=== PATIENT | female | born 1970 | race Two or more races ===

== ENCOUNTER 2024-10-02 14:40 | Outpatient (CLI) | payer OTHER, SELFPAY | END 2024-10-02 14:41 | disposition home or self-care (01) | PROVIDERS: PCP Family Medicine; Visit Provider Family Medicine | DX: I10 Essential (primary) hypertension (principal); E78.5 Hyperlipidemia, unspecified; I25.10 Atherosclerotic heart disease of native coronary artery without angina pectoris; E55.9 Vitamin D deficiency, unspecified; M54.50 Low back pain, unspecified | CPT/HCPCS: 80053; 80061; 82306; 82607; 82728; 83540; 83550; 84439; 84443; 85025 ==

== ENCOUNTER 2024-11-10 12:51 | Outpatient (RCR) | payer BC, SELFPAY ==
--- NOTE | 2024-11-10 16:20 | PT.OPEX ---
PT [place] Out[facility] Eval PT [facility] Outpatient Eval Start: 11/10/24 13:08 Freq: Status: Active Protocol: Document 11/10/24 13:09 ILSA (Rec: 11/10/24 16:11 ILSA [id number]) E-signed By Sara Ramirez DPT Physical Therapy Outpatient Evaluation Insurance Information Recert Due Date 02/08/25 Insurance Name Medicaid Medical Diagnosis bilateral knee pain LBP Treating Diagnosis bilateral knee pain, quad/VMO weakness with lateral patellar tracking, hypomobile patella bilaterally, LBP, core/hip/ glut weakness Subjective Subjective Patient c/o bilateral knee pain, R>L. Knee pain has been flaring up over the last couple of months. She denies any injury/trauma. She reports increased knee pain with standing/walking. Knee pain rated 3/10. She localizes R knee pain to R lateral patella. She also reports LBP over the last several months. She feels her back pain has been feeling better lately. LBP range 0-4/ 10. She is using tylenol as needed, taking it about once a week. Patient states that her knees have been bothering her more than her back recently but having issues with both knees and back. She denies any prior back or knee surgeries. No prior PT for her back or knees. States she is doing a few exercises at home that she found online. Date of Last Physician Visit 10/02/24 Occupation not currently working Assessment Assessment/Impression Patient is a 54 year old female bilateral knee pain, quad/VMO weakness with lateral patellar tracking, hypomobile patella bilaterally, LBP, core/hip/glut weakness. Patient reports right knee pain is worse than left knee. Increased knee pain with standing/walking. Also reports increased R knee pain with end range flex. Knee pain rated 3/10. R knee ROM 0 -0-132 degrees. L knee ROM 0- 0-140 degrees. Patient with bilateral lateral patellar tracking with QS. Hypomobile bilateral patella. Patient is tender with palpation R lateral patella, tightness bilateral ITB. Bilateral quad /VMO weakness with lateral patellar tracking. Patient with chronic LBP, off/on pain over the last several months. Back pain has been feeling better lately, back pain range 0-4/10. Trunk ROM is WFL. Patient denies any LE radicular pain/sx. She reports some tightness in R LB with movement/exercises this session. Able to loosen up LB with MT and exercises this session. Initiated HEP for core/hip/glut/quad/VMO strengthening. Tolerated well . HO issued for HEP. Patient would benefit from skilled PT for pain/sx management, improved R knee ROM, quad/VMO strengthening, improved patellar mobility/tracking, core/hip/glut strengthening, and establishment of HEP. Plan of Care Rehabilitation Potential Good Physical Therapy Goals 1. Decrease bilateral knee pain to less than/equal to 3/ 10 with daily activities and with the progression of PT activities over the next 6-8 weeks. 2. Decrease/maintain LBP at less than/equal to 3/10 with daily activities and with the progression of PT activities over the next 6-8 weeks. 3. Patient will be educated on posture/body mechanics and pain management strategies over the next 6-8 weeks for decreased stress on LB/knees and for decreased LBP/bilateral knee pain. 4. Improve core/hip/glut/VMO/ LE strength over the next 10- 12 weeks for improved patellar tracking, decrease stress to bilateral knees, improved gait, decreased back pain, and improved tolerance for extended standing/walking for daily activities. 5. Improve balance/ proprioception over the next 8 -10 weeks for improved stability with static/dynamic activities , decreased stress to bilateral knees, improved core /trunk stabilization, and improved tolerance for extended standing/walking for daily activities. 6. Patient will be I with HEP within 12 weeks for progression toward above goals, ongoing self management of pain/sx, ongoing self improvements in core/hip/glut/LE strength, and for improved tolerance for extended standing/walking for daily activities. Coordination/Communication With Referral Source Treatment Plan/Direct Interventions Manual Therapy,Therapeutic Exercises Frequency/Duration 1x/week Patient Will Be Discharged From Therapy Completion of LTG(s),Skills Plateau,Independent w/HEP, Independently Progressing Evaluation Billing Untimed Code Treatment Minutes 28 Complexity Moderate Certification Information Initial Certification Date 11/10/24 Ending Certification Date 02/08/25 Provider Signature Required Yes Provider Signature Shows Agreement With POC & Medical Necessity Physician NPI Number Write NPI# Here Physician Comment/Change : Physician Signature & Date Requested Please Sign/Date Here
== END 2025-03-10 23:59 | disposition home or self-care (01) ==
PROVIDERS: PCP Family Medicine; Visit Provider Family Medicine
DX: M25.561 Pain in right knee (principal); M25.562 Pain in left knee; M54.50 Low back pain, unspecified; G89.29 Other chronic pain; Z51.89 Encounter for other specified aftercare
CPT/HCPCS: 97110; 97140; 97162

== ENCOUNTER 2024-12-02 15:49 | Outpatient (CLI) | payer BC, SELFPAY | END 2024-12-02 15:50 | disposition home or self-care (01) | LOC: NFLDREF 15:49 | PROVIDERS: PCP Family Medicine; Visit Provider Family Medicine | DX: D50.9 Iron deficiency anemia, unspecified (principal); I10 Essential (primary) hypertension | CPT/HCPCS: 80048; 85045 ==

== ENCOUNTER 2025-01-09 14:53 | Emergency (ER) | payer BC, SELFPAY ==
[2025-01-09] VITALS (11 sets, daily range): BP systolic 136–140; BP diastolic 82–84; PULSE 58–66; RESP 10–29; TEMP 36.2; O2SAT 93–100; BMI 31.8
--- NOTE | 2025-01-09 15:37 | ED.GENADULT ---
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 Pt reports she has chest and neck pain which started 2 days ago. Pt describes neck pain as burning, states pain in chest comes with breathing as well. Pt also states she gets more tired than usual while walking. 54-year-old woman presenting to the emergency department concern of chest and neck pain. Does have an underlying history of coronary artery disease noted on review of record along with hypertension. Apparently 2 days ago experience some unclear chest pain that she treated with Advil and that is improved. She was left with a burning pain in her upper back/neck since that time that feels better she admits when she rubs it. Not noticed any rashes. Information obtained later feels that was seen for similar about a year ago and seems to improved with some sort of a gel treatment; sounds like this may have been a diclofenac type gel. Due to family having had some strokes she is quite concerned about is having had a potential stroke. Did not have any headache. No visual disturbances however over the last number of months has been having some blurriness and maybe watering vision after waking in the morning. She is not short of breath now. Discomfort might be worse when walking. No radicular symptoms into extremities. Related Data Home Medications ?Medication ?Instructions ?Recorded ?Confirmed aspirin 81 mg tablet,delayed 81 mg PO QDAY 10/02/24 01/09/25 release (Adult Low Dose Aspirin) cholecalciferol (vitamin D3) 25 25 mcg PO QDAY 10/02/24 01/09/25 mcg (1,000 unit) capsule Previous Rx's ?Medication ?Instructions ?Recorded losartan 100 mg tablet 100 mg PO QDAY #90 tabs 12/02/24 rosuvastatin 10 mg tablet 10 mg PO QDAY #90 tabs 12/02/24 Allergies Allergy/AdvReac Type Severity Reaction Status Date / Time No Known Drug Allergies Allergy Verified 12/02/24 15:31 Review of Systems Status of ROS: Reports: 6 or more systems reviewed and unremarkable except as noted in History and below [facility] Medical History CAD (coronary artery disease) (2023) ?I25.10 - Atherosclerotic heart disease of [place] coronary artery without angina pectoris (ICD-10) HTN (hypertension) ?I10 - Essential (primary) hypertension (ICD-10) Dyslipidemia ?E78.5 - Hyperlipidemia, unspecified (ICD-10) Bilateral chronic knee pain ?M25.561 - Pain in right knee (ICD-10) ?M25.562 - Pain in left knee (ICD-10) ?G89.29 - Other chronic pain (ICD-10) Lumbar back pain ?M54.50 - Low back pain, unspecified (ICD-10) Non-Hungarian speaking patient ?Z78.9 - Other specified health status (ICD-10) Surgical History No history of previous surgery Family History Brother Stroke, Onset Age: 60 Maternal Grandmother Stroke, Onset Age: 83 Social History Narrative: , [id number] lives in [place] with sister, 3 children. 1 daughter in [place] and 2 daughters in [facility]. to [facility] 2021 Lifetime nonsmoker Does not drink alcohol Does not exercise No drug use What is your current living situation?: I presently have a place to live Problems where you live: declined to answer In the past 12 months, utilities in danger of being shut off: no In past 12 months, lack of transportation kept you from medical appts, meetings, work, or getting things needed for daily living: declined to answer In the past 12 mos, have been you worried that your food would run out before you had money to buy more?: declined to answer In the past 12 mos, the food you bought just didn't last and you didn't have money to buy more?: never true How often does anyone, including family, friends and others, physically hurt you: never How often does anyone, including family, friends and others, insult or talk down to you: never How often does anyone, including family, friends and others, threaten you with harm: never How often does anyone, including family, friends and others, scream or curse at you: never Exam Narrative: Exam Narrative: Pleasant. NAD. Skin is warm and dry. No rashes noted. No lower extremity edema. She is well-perfused peripherally. Lungs are clear. Heart in regular to slower rate. Regular rhythm without murmur rub or gallop. Abdomen is soft and nontender. Cranial nerves 2-12 are intact. For clear sclerae bilaterally. Moving all extremities without difficulty without evidence deficit. Const: Vital Signs, click to edit/add: Vital Signs - 24 hr 01/09/25 14:57 01/09/25 15:30 01/09/25 15:33 Temperature 97.1 F L Pulse Rate 61 Pulse Rate [Pulse Oximeter] 66 Respiratory Rate 16 13 Blood Pressure 136/82 Blood Pressure [Ri ght Upper Arm] 140/84 H Pulse Oximetry 99 100 93 Oxygen Delivery Me thod Room Air 01/09/25 15:34 01/09/25 15:45 01/09/25 16:00 Temperature Pulse Rate 60 61 65 Pulse Rate [Pulse Oximeter] Respiratory Rate 23 20 10 L Blood Pressure Blood Pressure [Ri ght Upper Arm] Pulse Oximetry 95 97 99 Oxygen Delivery Me thod 01/09/25 16:23 01/09/25 16:30 01/09/25 16:45 Temperature Pulse Rate 64 60 Pulse Rate [Pulse Oximeter] Respiratory Rate 28 H 15 20 Blood Pressure Blood Pressure [Ri ght Upper Arm] Pulse Oximetry 97 98 Oxygen Delivery Me thod 01/09/25 17:00 01/09/25 17:15 Temperature Pulse Rate 58 L 59 L Pulse Rate [Pulse Oximeter] Respiratory Rate 25 H 29 H Blood Pressure Blood Pressure [Ri ght Upper Arm] Pulse Oximetry 100 100 Oxygen Delivery Me thod Documenting provider has reviewed patient's vital signs: yes Course Vital Signs Vital signs: Initial Vital Signs Temperature 97.1 F L 01/09/25 14:57 Temperature Source Temporal Artery Scan 01/09/25 14:57 Pulse Rate 66 01/09/25 14:57 Respiratory Rate 16 01/09/25 14:57 Blood Pressure 140/84 H 01/09/25 14:57 Blood Pressure Mean 102 01/09/25 14:57 Blood Pressure Position Sitting 01/09/25 14:57 Pulse Oximetry 99 01/09/25 14:57 Oxygen Delivery Method Room Air 01/09/25 14:57 Vital Signs Temperature 97.1 F L 01/09/25 14:57 Pulse Rate 66 01/09/25 14:57 Respiratory Rate 16 01/09/25 14:57 Blood Pressure 140/84 H 01/09/25 14:57 Pulse Oximetry 99 01/09/25 14:57 Oxygen Delivery Method Room Air 01/09/25 14:57 Temperature 97.1 F L 01/09/25 14:57 Pulse Rate 59 L 01/09/25 17:15 Respiratory Rate 29 H 01/09/25 17:15 Blood Pressure 136/82 01/09/25 15:33 Pulse Oximetry 100 01/09/25 17:15 Oxygen Delivery Method Room Air 01/09/25 14:57 Medications Administered Medications: Discontinued Medications Generic Name Dose Route Start Last Admin Trade Name Shel[place] PRN Reason Stop Dose Admin Lidocaine 1 patch 01/09/25 16:02 01/09/25 17:17 Lidocaine 5% Patch TRANSDERMA 01/09/25 16:03 1 patch ONCE ONE Administration Protocol Medical Decision Making MDM Narrative Medical decision making narrative: Appears to have residual discomfort that is affected by direct pressure. She notes having had rather high blood pressure before but looks good here with 140/84 on arrival and further improved during time of interview. Per her concern will look for any evidence of hypertensive urgency. I see no evidence of CVA. Will monitor on director of cardiac cath lab. Check labs related to hypertension. Differential would include osteoarthritic related pain, dissection, ischemic cardiovascular event, tachyarrhythmia, very embolus Labs are reassuring. D-dimer is very mildly elevated but I am reassured by reproducibility of symptoms. We discussed reasons why D-dimer might be elevated. She has no pulmonary symptoms at this time. No progressive symptoms otherwise to suggest dissection. In process of shared decision making decided to not image further. No events on monitor other than did have a PVC or 2 during time of conversation at 1 point. These appeared to be asymptomatic. Trial of lidocaine patch over back of lower neck/C7 area. On reassessment notes improvement after finally placement of Lidoderm patch See patient discharge plan for further discussion Your blood pressure looks quite good now. Your labs were reassuring overall. If this patch helps, you can buy more of these lidocaine patches [id number]. I would watch for development of a rash in this area which might need evaluation. Be seen for marked increase in pain, associated lightheadedness, loss of vision, new and focal weakness, increasing and persistent chest pain. I am also giving you a handout for some exercises for the upper back that might helpful. Lab Data Labs: Lab Results 01/09/25 01/09/25 01/09/25 Range/Units 15:25 15:25 16:02 Hgb 11.2 L (12.0-16.0) gm/dL D-Dimer Quant (PE/DVT) 0.65 H (0.00-0.50) ug/ml Sodium 140 (135-149) mmol/L Potassium 4.0 (3.6-5.1) mmol/L Chloride 105 (96-114) mmol/L Carbon Dioxide 26 (20-32) mmol/L Anion Gap 9 (7-15) mEq/L BUN 21 (7-30) mg/dL Creatinine 0.8 (0.5-1.5) mg/dL Estimated Creat Clear 68.61 Estimated GFR 87 ml/min Glucose 100 (60-115) mg/dL Calcium 10.2 (8.4-10.6) mg/dL C-Reactive Protein < 0.5 L Cancelled (0.5-1.0) mg/dL Urine Color (Yellow) Urine Appearance (Clear) Urine pH (5.0-8.5) Ur Specific [place] (1.000-1.030) Urine Protein (Negative) Urine Glucose (UA) (Negative) Urine Ketones (Negative) Urine Blood (Negative) Urine Nitrite (Negative) Urine Bilirubin (Negative) Urine Urobilinogen (0.2-1.0) Ur Leukocyte Esterase (Negative) Urine RBC (0-2) Urine WBC (0-5) Ur Squamous Epith Cells (None-Few) Urine Bacteria (None) POC Troponin I 0.00 L (0.01-0.04) ng/ml 01/09/25 Range/Units 16:23 Hgb (12.0-16.0) gm/dL D-Dimer Quant (PE/DVT) (0.00-0.50) ug/ml Sodium (135-149) mmol/L Potassium (3.6-5.1) mmol/L Chloride (96-114) mmol/L Carbon Dioxide (20-32) mmol/L Anion Gap (7-15) mEq/L BUN (7-30) mg/dL Creatinine (0.5-1.5) mg/dL Estimated Creat Clear Estimated GFR ml/min Glucose (60-115) mg/dL Calcium (8.4-10.6) mg/dL C-Reactive Protein (0.5-1.0) mg/dL Urine Color Yellow (Yellow) Urine Appearance Clear (Clear) Urine pH 7.0 (5.0-8.5) Ur Specific [place] 1.015 (1.000-1.030) Urine Protein Negative (Negative) Urine Glucose (UA) Negative (Negative) Urine Ketones Negative (Negative) Urine Blood Negative (Negative) Urine Nitrite Negative (Negative) Urine Bilirubin Negative (Negative) Urine Urobilinogen 0.2 (0.2-1.0) Ur Leukocyte Esterase Negative (Negative) Urine RBC 0-2 (0-2) Urine WBC 0-2 (0-5) Ur Squamous Epith Cells Few (None-Few) Urine Bacteria Few A (None) POC Troponin I (0.01-0.04) ng/ml ECG Data Attestation: I personally reviewed and interpreted this ECG as follows: (Normal sinus rhythm. Lower voltage. Rate of 64) Discharge Plan Discharge Clinical Impression: Hypesthesia, Atypical chest pain Patient Disposition: Home w/ Parent or Adult Condition: Improved Additional Instructions: Your blood pressure looks quite good now. Your labs were reassuring overall. If this patch helps, you can buy more of these lidocaine patches [id number]. I would watch for development of a rash in this area which might need evaluation. Be seen for marked increase in pain, associated lightheadedness, loss of vision, new and focal weakness, increasing and persistent chest pain. I am also giving you a handout for some exercises for the upper back that might helpful. Prescriptions: No Action aspirin [Adult Low Dose Aspirin] 81 mg tablet,delayed release (DR/EC) 81 mg PO QDAY cholecalciferol (vitamin D3) 25 mcg (1,000 unit) capsule 25 mcg PO QDAY rosuvastatin 10 mg tablet 10 mg PO QDAY Qty: 90 3RF losartan 100 mg tablet 100 mg PO QDAY Qty: 90 3RF Follow Up/Referrals: Arlette Gutierrez MD [Primary Care Provider] - Stand Alone Forms: [employer] Info Instructions
[2025-01-09 16:26] LABS: Chloride* 105 mmol/L (96-114); Hemoglobin* 11.2 gm/dL (12.0-16.0); Sodium* 140 mmol/L (135-149)
[2025-01-09 16:29] LABS: Anion Gap 9 mEq/L (7-15); Blood Urea Nitrogen* 21 mg/dL (7-30); Carbon Dioxide* 26 mmol/L (20-32); Creatinine* 0.8 mg/dL (0.5-1.5); Est. Creatinine Clearance* 68.61; Estimated Glomerular Filt Rate 87 ml/min
[2025-01-09 16:30] LABS: Calcium* 10.2 mg/dL (8.4-10.6); Glucose* 100 mg/dL (60-115)
[2025-01-09 16:33] LABS: C Reactive Protein* < 0.5 mg/dL (0.5-1.0)
[2025-01-09 16:39] LABS: D Dimer Quantitative* 0.65 ug/ml (0.00-0.50)
[2025-01-09 16:41] LABS: Appearance Urine Clear (Clear); Bilirubin Urine Negative (Negative); Blood Urine Negative (Negative); Glucose Urine Negative (Negative); Ketones Urine Negative (Negative); Leukocyte Esterase Urine Negative (Negative); Nitrite Urine Negative (Negative); Protein Urine Negative (Negative); Specific Gravity Urine 1.015 (1.000-1.030); Urobilinogen Urine 0.2 (0.2-1.0)
[2025-01-09 16:43] LABS: Color Urine Yellow (Yellow); RBC Urine 0-2 (0-2); WBC Urine 0-2 (0-5)
[2025-01-09 16:44] LABS: Bacteria Urine Few
[2025-01-09 16:45] LABS: Squamous Epithelial Cell Urine Few (None-Few)
[2025-01-09] MEDS: LIDOCAINE 5% PATCH 1 PATCH TRANSDERMA (17:17)
== END 2025-01-09 18:28 | disposition home or self-care (01) ==
PROVIDERS: Emergency Provider Family Medicine; PCP Family Medicine
DX: R20.3 Hyperesthesia (principal); R07.89 Other chest pain
CPT/HCPCS: 36415; 80048; 81001; 84484; 85018; 85025; 85379; 86140; 87086; 93005; 94761; 99284; A9270